=== PATIENT | female | born 1985 ===

== ENCOUNTER → 2020-10-01 14:54 | Outpatient (CLI) | payer OTHER | END | disposition home or self-care (01) | LOC: LAB 14:43 | PROVIDERS: ATTEND Emergency Medicine Pediatric Emergency Medicine | DX: Z03.818 Encounter for observation for suspected exposure to other biological agents ruled out (principal) ==

== ENCOUNTER 2020-10-16 08:53 | Outpatient (CLI) | payer OTHER | END 2020-10-16 15:00 | disposition home or self-care (01) | LOC: LAB 08:53 | PROVIDERS: ATTEND Emergency Medicine Pediatric Emergency Medicine | DX: Z03.818 Encounter for observation for suspected exposure to other biological agents ruled out (principal) ==